=== PATIENT | male | born 1970 | race African-American/Black ===

== ENCOUNTER 2020-10-04 03:05 | Emergency (ER) | payer MEDICARE, OTHER ==
[~2020-10-04] VITALS: Ht 182.9 cm; Wt 145.4 kg
[~2020-10-04 03:05] MED LIST: ACET325T21 PO; AMLO-186 PO; AMLO-187 PO; AMLO2.5T5 PO; AMOX1TAB61 PO; ASPI-630 PO; ASPI-886 PO; ASPI325T8 PO; ATOR10TA60 PO; ATOR20TA58 PO; ATOR40TA59 PO; BUME1TAB3 PO; BUPR150T8 PO; CARV12.511 PO; CARV25TA2 PO; CARV3.1210 PO; CLON0.1T12 PO; CLON0.2T PO; CLON0.3T PO; CLON1PAT9 TD; CLOP75TA PO; COLLAGENASE TOP; DIVA500T2 PO; DOXA2TAB2 PO; FAMO20TA5 PO; FURO20TA3 PO; HYDR-2867 PO; HYDR-2868 PO; HYDR-2869 PO; HYDR12.575 PO; INSU100C SQ; INSU100C4 SQ; INSU100V13 SQ; INSU100V35 SQ; INSU100V6 SQ; ISOS30TA19 PO; ISOS30TA68 PO; LABE200T4 PO; LISI-130 PO; LISI-379 PO; LISI-517 PO; LISI20TA18 PO; METO5TAB4 PO; PANT40TA77 PO; POTA20TA4 PO; SENN8.6T11 PO; SULF15DR5 OU; TRAM50TA PO; ZINC113C8 TP; [UNRECOGNIZED DRUG - OTHER] TOP
--- NOTE | 2020-10-04 03:36 | ED.ADGEN ---
Past Medical History Past Medical History: CHF, CVA, Diabetes-Type II, High Cholesterol, Hypertension Additional Past Medical Histor: CVA X2 Past Surgical History: Other Additional Past Surgical Histo: Drain placed in groin, hernia surgery Smoking Status: Never Smoker Alcohol Use: None Drug Use: None General Adult EDM: Chief Complaint: ABDOMINAL PAIN HPI: HPI: Patient is a 50 year old male coming in from nursing facility for epigastric pain and one episode of emesis. Patient was not given any of his as needed Zofran medication at the time. No other complaints Review of Systems: Review of Systems: All other systems within normal limits except for as noted in the HPI Current Medications: Current Medications Medications (Trade) Dose Ordered Sig/Dequan Start Time Stop Time Status Last Admin Dose Admin Hydralazine HCl (Apresoline Inj) 10 mg 1X ONCE 10/04/20 03:45 10/04/20 03:46 DC 10/04/20 06:45 10 MG Ondansetron HCl (Zofran) 4 mg 1X ONCE 10/04/20 03:45 10/04/20 03:46 DC 10/04/20 06:45 4 MG Allergies: Allergies: Allergies Coded Allergies Type Severity Reaction Last Updated Verified shellfish derived Allergy Intermediate Rash 05/27/15 Yes Physical Exam: PE: Constitutional: Well developed, well nourished, no acute distress, non-toxic appearance. [] HENT: Normocephalic, atraumatic, bilateral external ears normal, nose normal. [] Eyes: PERRLA, conjunctiva normal, no discharge. [] Neck: No rigidity, supple, no stridor. [] Cardiovascular: Regular rate and rhythm, brisk cap refill [] Lungs & Thorax: Non labored symmetric respirations, no tachypnea or respiratory distress [] Abdomen: Soft, nondistended, epigastric tenderness without guarding or rebound. Skin: Warm, dry, no erythema, no rash. [] Back: Unremarkable Extremities: No deformities, range of motion grossly intact, no lower extremity edema [] Neurologic: Alert and oriented X 3, no focal deficits noted. [] Psychologic: Affect normal, judgement normal, mood normal. [] Current Patient Data: Labs: Laboratory Tests Test 10/04/20 05:50 10/04/20 08:05 White Blood Count 9.6 x10^3/uL (4.0-11.0) Red Blood Count 4.32 x10^6/uL (4.30-5.70) Hemoglobin 11.7 g/dL (13.0-17.5) L Hematocrit 35.5 % (39.0-53.0) L Mean Corpuscular Volume 82 fL (79-100) Mean Corpuscular Hemoglobin 27 pg (25-35) Mean Corpuscular Hemoglobin Concent 33 g/dL (31-37) Red Cell Distribution Width 16.7 % (11.5-14.5) H Platelet Count 258 x10^3/uL (140-400) Neutrophils (%) (Auto) 74 % (31-73) H Lymphocytes (%) (Auto) 14 % (24-48) L Monocytes (%) (Auto) 9 % (0-9) Eosinophils (%) (Auto) 3 % (0-3) Basophils (%) (Auto) 1 % (0-3) Neutrophils # (Auto) 7.0 x10^3/uL (1.8-7.7) Lymphocytes # (Auto) 1.3 x10^3/uL (1.0-4.8) Monocytes # (Auto) 0.9 x10^3/uL (0.0-1.1) Eosinophils # (Auto) 0.3 x10^3/uL (0.0-0.7) Basophils # (Auto) 0.0 x10^3/uL (0.0-0.2) Sodium Level 147 mmol/L (136-145) H Potassium Level 3.5 mmol/L (3.5-5.1) Chloride Level 108 mmol/L (98-107) H Carbon Dioxide Level 32 mmol/L (21-32) Anion Gap 7 (6-14) Blood Urea Nitrogen 27 mg/dL (8-26) H Creatinine 1.8 mg/dL (0.7-1.3) H Estimated GFR (Cockcroft-Gault) 48.2 BUN/Creatinine Ratio 15 (6-20) Glucose Level 135 mg/dL (70-99) H Calcium Level 8.6 mg/dL (8.5-10.1) Total Bilirubin 0.5 mg/dL (0.2-1.0) Aspartate Amino Transferase (AST) 9 U/L (15-37) L Alanine Aminotransferase (ALT) 16 U/L (16-63) Alkaline Phosphatase 81 U/L (46-116) Total Protein 6.6 g/dL (6.4-8.2) Albumin 3.0 g/dL (3.4-5.0) L Albumin/Globulin Ratio 0.8 (1.0-1.7) L Lipase 51 U/L (73-393) L Urine Collection Type Unknown Urine Color Yellow Urine Clarity Clear Urine pH 5.0 (<5.0-8.0) Urine Specific Al[place] 1.015 (1.000-1.030) Urine Protein Negative mg/dL (NEG-TRACE) Urine Glucose (UA) Negative mg/dL (NEG) Urine Ketones (Stick) Negative mg/dL (NEG) Urine Blood Negative (NEG) Urine Nitrite Negative (NEG) Urine Bilirubin Negative (NEG) Urine Urobilinogen Dipstick 0.2 mg/dL (0.2 mg/dL) Urine Leukocyte Esterase Negative (NEG) Urine RBC 0 /HPF (0-2) Urine WBC 0 /HPF (0-4) Urine Squamous Epithelial Cells Mod /LPF Urine Bacteria Few /HPF (0-FEW) Urine Mucus Mod /LPF Laboratory Tests 10/04/20 05:50 Laboratory Tests 10/04/20 05:50 Vital Signs: Vital Signs Date Time Temp Pulse Resp B/P (MAP) Pulse Ox O2 Delivery O2 Flow Rate FiO2 10/04/20 08:20 90 16 167/85 (112) 98 Room Air 10/04/20 03:12 98.0 98.0 EKG: EKG: [] Heart Score: C/O Chest Pain: No Risk Factors: Risk Factors: DM, Current or recent (<one month) smoker, HTN, HLP, family history of CAD, obesity. Risk Scores: Score 0 - 3: 2.5% MACE over next 6 weeks - Discharge Home Score 4 - 6: 20.3% MACE over next 6 weeks - Admit for Clinical Observation Score 7 - 10: 72.7% MACE over next 6 weeks - Early Invasive Strategies Radiology/Procedures: Radiology/Procedures: [] Course & Med Decision Making: Course & Med Decision Making Care transition at shift change pending labs and p.o. challenge. Patient is a 50-year-old male who presents to the emergency room with mild epigastric pain and a single episode of vomiting. Patient has not had any further vomiting here in the emergency room. Abdominal lab work was ordered by prior physician and are baseline for the patient. Patient does not appear to have an acute kidney injury. At this time patient is stable and will be discharged back to his facility. Patient's test results and vitals while in the ED were fully reviewed and discussed with the patient. Patient is stable and at this time does not need admission to the hospital. We have discussed strict return precautions and the importance of following up with their Primary Care Physician. Patient stated understanding and was given an opportunity to ask any questions. Patient is in agreement with plan. Dragon Disclaimer: Dragon Disclaimer: This electronic medical record was generated, in whole or in part, using a voice recognition dictation system. Departure Departure Impression: Primary Impression: Abdominal pain Additional Impression: Nausea and vomiting Disposition: 03 INTERMEDIATE FACILITY Condition: STABLE Referrals: ZARA ANTONIO MD (PCP) Patient Instructions: Nausea and Vomiting Problem Qualifiers NELLIE CAMPBELL MD Oct 04, 2020 03:36 PEARL SILVA MD Oct 04, 2020 07:07
[2020-10-04] MEDS ORDERED: ONDANSETRON PF 4 MG/2 ML VIAL. IVP ONE (03:45)
[2020-10-04] MEDS ORDERED: hydrALAZINE 20 MG/ML VIAL. IVP ONE (03:45)
[2020-10-04 06:10] LABS: BASO % 1 % (0-3); CALCIUM 8.6 mg/dL (8.5-10.1); CREATININE 1.8 mg/dL (0.7-1.3); EOS # 0.3 x10^3/uL (0.0-0.7); EOS % 3 % (0-3); GFR 48.2; HEMATOCRIT 35.5 % (39.0-53.0); HEMOGLOBIN 11.7 g/dL (13.0-17.5); LYMPH # 1.3 x10^3/uL (1.0-4.8); LYMPH % 14 % (24-48); MEAN CORPUSCULAR HEMOGLOBIN 27 pg (25-35); MEAN CORPUSCULAR HGB CONC 33 g/dL (31-37); MEAN CORPUSCULAR VOLUME 82 fL (79-100); MONO # 0.9 x10^3/uL (0.0-1.1); MONO % 9 % (0-9); NEUT % 74 % (31-73); PLATELET COUNT 258 x10^3/uL (140-400); POTASSIUM 3.5 mmol/L (3.5-5.1); RED BLOOD COUNT 4.32 x10^6/uL (4.30-5.70); RED CELL DISTRIBUTION WIDTH 16.7 % (11.5-14.5); WHITE BLOOD COUNT 9.6 x10^3/uL (4.0-11.0)
[2020-10-04 06:16] LABS: ALBUMIN/GLOBULIN RATIO 0.8 (1.0-1.7); TOTAL BILIRUBIN 0.5 mg/dL (0.2-1.0); TOTAL PROTEIN 6.6 g/dL (6.4-8.2)
[2020-10-04 08:20] VITALS: BP 167/85
[2020-10-04 08:24] LABS: BILIRUBIN,URINE NEGATIVE (NEG); CLARITY,URINE CLEAR; COLOR,URINE YELLOW; NITRITE,URINE NEGATIVE (NEG); PROTEIN,URINE NEGATIVE (NEG-TRACE); UROBILINOGEN,URINE 0.2 mg/dL (0.2 mg/dL)
[2020-10-04 08:37] LABS: BACTERIA,URINE FEW /HPF (0-FEW); RBC,URINE 0 /HPF (0-2); WBC,URINE 0 /HPF (0-4)
== END 2020-10-04 09:59 | disposition home or self-care (01) ==
LOC: ER 03:05
DX: R10.13 Epigastric pain (principal); R11.2 Nausea with vomiting, unspecified; I11.0 Hypertensive heart disease with heart failure; I50.9 Heart failure, unspecified; E11.9 Type 2 diabetes mellitus without complications; E78.00 Pure hypercholesterolemia, unspecified; Z86.73 Personal history of transient ischemic attack (TIA), and cerebral infarction without residual deficits; Z91.013 Allergy to seafood
CPT/HCPCS: 36415; 80053; 81001; 83690; 85025; 96374; 96375; 99285; J0360; J2405; P9612

== ENCOUNTER → 2020-10-27 | Outpatient (CLI) | payer MEDICARE, OTHER ==
[2020-10-04 08:20] VITALS: BP 167/85
--- NOTE | 2020-10-28 12:11 | SLEEP ---
DATE OF STUDY: 10/27/2020 ATTENDING PHYSICIAN: Dr. Foley REFERRING PHYSICIAN: Dr. Palacios. The patient is 50-year-old who weighs 360 pounds with a BMI of 45. The patient's Wob[place] score was 8. The patient underwent diagnostic sleep study performed at [facility]. During the night study, the patient spent 430 minutes in bed and slept for 358 minutes with a sleep efficiency of 83%. Sleep latency was 30 minutes with absent REM sleep. Overall, sleep architecture showed normal stage I sleep, increased stage II sleep, absent slow wave and absent REM sleep. During the night study, the patient had 4 obstructive apneas, 2 mixed apneas, 7 central apneas and 56 hypopneas. The patient's AHI was 12 per hour. Supine AHI 12 per hour. REM sleep was not observed. EKG monitoring revealed an average heart rate of 85 beats per minute. No sustained arrhythmias observed. Nocturnal oximetry study revealed an average oxygen saturation of 97% with a lowest of 79% and 16% of time oxygen saturation remained between 80 and 89%. No PLMs were observed. Due to low AHI, the patient did not meet the split night criteria for CPAP initiation. IMPRESSION: 1. Mild obstructive sleep apnea at an AHI of 12 per hour. Absence of REM sleep can underestimate the severity of sleep apnea. 2. Nocturnal hypoxia secondary to obstructive sleep apnea. RECOMMENDATION: 1. The patient will benefit from return to the sleep lab for CPAP titration study. 2. Once the patient is optimally treated with CPAP, then follow up in 4-6 weeks to assess compliance and to document clinical improvement. 3. Weight loss is advised. 4. Avoid STUDENT DEVELOPMENT COORDINATOR depressants. 5. Cautioned regarding driving until symptoms of sleep apnea resolve with the use of CPAP. MIRZA DR: Gissel TID: [id number] CC: ZARA FOLYE MD
== END ==
LOC: SLPLAB 19:11
PROVIDERS: ATTEND Internal Medicine
DX: G47.33 Obstructive sleep apnea (adult) (pediatric) (principal); R09.02 Hypoxemia
CPT/HCPCS: 95810

== ENCOUNTER 2021-02-21 09:58 | Inpatient (IN) | payer MEDICARE, OTHER ==
[~2021-02-21] VITALS: Ht 190.5 cm; Wt 165.0 kg
[~2021-02-21 09:58] MED LIST changes: -LISI-517 PO; +LISI5TAB15 PO; +POTA-121 PO
--- NOTE | 2021-02-21 10:11 | PHYS DOC ---
Past Medical History Past Medical History: CHF, CVA, Diabetes-Type II, High Cholesterol, Hyper tension Additional Past Medical Histor: CVA X2 Past Surgical History: Other Additional Past Surgical Histo: Drain placed in groin, hernia surgery Smoking Status: Never Smoker Alcohol Use: None Drug Use: None General Adult HPI: HPI: Patient is a 50-year-old male who presents to the emergency department for left- sided chest pain that started at 0900. The pain does not radiate. He rates it 9 out of 10. No treatment prior to arrival. Patient did have a history of chest pain. He reports mild lightheadedness with his chest pain. He has a history of diabetes type 2, 2 CVAs with right-sided numbness and weakness as a deficit and hypertension. He was given 324 mg of aspirin by the [facility] and got 0.4 sublingual nitroglycerin by EMS prior to arrival. He states that his pain did improve following the sublingual nitroglycerin. Patient denies shortness of breath, nausea, vomiting, cough, fevers. Patient has bilateral lower extremity edema but states that this is his baseline edema and it has not increased. Review of Systems: Review of Systems: Constitutional: See HPI Respiratory: See HPI Cardiovascular: See HPI GI: See HPI Neurologic: HPI Endocrine: See HPI Heart Score: C/O Chest Pain: Yes HEART Score for Chest Pain: HEART Score for Chest Pain Response (Comments) Value History Moderately Suspicious 1 ECG Normal 0 Age >45 - < 65 1 Risk Factors >3 Risk Factors or Hx CAD 2 Troponin < Normal Limit 0 Total 4 Risk Factors: Risk Factors: DM, Current or recent (<one month) smoker, HTN, HLP, family history of CAD, obesity. Risk Scores: Score 0 - 3: 2.5% MACE over next 6 weeks - Discharge Home Score 4 - 6: 20.3% MACE over next 6 weeks - Admit for Clinical Observation Score 7 - 10: 72.7% MACE over next 6 weeks - Early Invasive Strategies Current Medications: Current Medications Medications (Trade) Dose Ordered Sig/Dequan Start Time Stop Time Status Last Admin Dose Admin Fentanyl Citrate (Fentanyl 2ml Vial) 50 mcg 1X ONCE 02/21/21 10:15 02/21/21 10:16 Nitroglycerin (Nitrostat) 0.4 mg PRN Q5MIN PRN 02/21/21 10:15 02/22/21 10:14 Allergies: Allergies: Allergies Coded Allergies Type Severity Reaction Last Updated Verified shellfish derived Allergy Intermediate Rash 05/27/15 Yes Physical Exam: PE: Constitutional: Well developed, well nourished, no acute distress, non-toxic appearance. [] HENT: Normocephalic, atraumatic, bilateral external ears normal, oropharynx moist, no oral exudates, nose normal. [] Eyes: PERRL,EOMI, conjunctiva normal, no discharge. [] Neck: Normal range of motion, no tenderness, supple, no stridor. [] Cardiovascular:Heart rate regular rhythm, no murmur, chest pain reproducible with palpation [] Lungs & Thorax: Bilateral breath sounds clear to auscultation [] Abdomen: Bowel sounds normal, soft, no tenderness, obese, no masses, no pulsatil e masses. [] Skin: Warm, dry, no erythema, no rash. [] Back: Normal range of motion Extremities: No tenderness, no cyanosis, no clubbing, ROM intact, 3+ pitting edema with dry and scaly skin noted to bilateral lower extremities, due to edema, dorsalis pedis pulses are decreased Neurologic: Alert and oriented X 3, normal motor function, normal sensory function, no focal deficits noted. [] Psychologic: Affect normal, judgement normal, mood normal. [] Current Patient Data: Labs: Laboratory Tests Test 02/21/21 10:10 White Blood Count 6.5 x10^3/uL Red Blood Count 4.62 x10^6/uL Hemoglobin 11.9 g/dL Hematocrit 37.4 % Mean Corpuscular Volume 81 fL Mean Corpuscular Hemoglobin 26 pg Mean Corpuscular Hemoglobin Concent 32 g/dL Red Cell Distribution Width 16.5 % Platelet Count 244 x10^3/uL Neutrophils (%) (Auto) 64 % Lymphocytes (%) (Auto) 22 % Monocytes (%) (Auto) 9 % Eosinophils (%) (Auto) 5 % Basophils (%) (Auto) 1 % Neutrophils # (Auto) 4.2 x10^3/uL Lymphocytes # (Auto) 1.5 x10^3/uL Monocytes # (Auto) 0.6 x10^3/uL Eosinophils # (Auto) 0.3 x10^3/uL Basophils # (Auto) 0.0 x10^3/uL Sodium Level 137 mmol/L Potassium Level 3.0 mmol/L Chloride Level 96 mmol/L Carbon Dioxide Level 33 mmol/L Anion Gap 8 Blood Urea Nitrogen 29 mg/dL Creatinine 1.9 mg/dL Estimated GFR (Cockcroft-Gault) 45.3 BUN/Creatinine Ratio 15 Glucose Level 427 mg/dL Calcium Level 7.9 mg/dL Total Bilirubin 0.4 mg/dL Aspartate Amino Transf (AST/SGOT) 9 U/L Alanine Aminotransferase (ALT/SGPT) 16 U/L Alkaline Phosphatase 135 U/L Troponin I High Sensitivity 34 ng/L NP-Vyk-Q-Type Natriuretic Peptide 215 pg/mL Total Protein 6.6 g/dL Albumin 2.8 g/dL Albumin/Globulin Ratio 0.7 Current Medications Medications (Trade) Dose Ordered Sig/Dequan Route PRN Reason Start Time Stop Time Status Last Admin Dose Admin Nitroglycerin (Nitrostat) 0.4 mg PRN Q5MIN PRN SL CP RATING > /02/21/21 10:15 02/22/21 10:14 02/21/21 10:26 Fentanyl Citrate (Fentanyl 2ml Vial) 50 mcg 1X ONCE IVP 02/21/21 10:15 02/21/21 10:16 DC 02/21/21 10:32 EKG: EKG: EKG performed by ER staff at 1005 shows sinus rhythm with first-degree heart block, [place] interval is 280, QTc is 41, no STEMI read by Dr. Treviño at 1005 [] Radiology/Procedures: Radiology/Procedures: []PROCEDURE: PORTABLE CHEST 1V EXAM: Chest, single view. HISTORY: Chest pain. COMPARISON: 09/25/2020 FINDINGS: A frontal view of the chest is obtained. There is no infiltrate, pleural effusion or pneumothorax. There are chronic appearing interstitial changes. There is a stable prominent cardiac silhouette. IMPRESSION: Chronic appearing changes and stable prominent cardiac silhouette. Electronically signed by: Britt Hernandez MD (02/21/2021 10:58 AM) [id number] DICTATED and SIGNED BY: BRITT HERNANDEZ MD DATE: 02/21/21 [id number] 0 Course & Med Decision Making: Course & Med Decision Making Pertinent Labs and Imaging studies reviewed. (See chart for details) [] Patient presents to the emergency department for left-sided chest pain that started 1 hour prior to arrival. Patient has a history of diabetes type 2, hypertension and obesity. He reports that the 0.4 sublingual nitroglycerin that was administered by EMS did improve his chest pain. He received 324 of aspirin prior to ER arrival. Work-up in the ER consisted of blood work, EKG and chest x-ray. Chest x-ray unremarkable. CBC unremarkable. Potassium was 3.0 this was replaced in the ER. Patient was noted to have elevated BUN and creatinine but this is consistent with his previous lab findings. Troponin 34, blood glucose 427. Patient reports that his pain is improved following the nitroglycerin is now 2/10. I discussed patient's case with Dr. Brian who is his primary care provider and he agreed to admit the patient under his services for serial troponins and cardiac consultation. I discussed these findings with patient he is agreeable to the treatment plan. Will admit the patient, ER bridge orders placed. Yadira Disclaimer: Yadira Disclaimer: This electronic medical record was generated, in whole or in part, using a voice recognition dictation system. Departure Departure Impression: Primary Impression: Chest pain Qualified Codes: R07.9 - Chest pain, unspecified Disposition: ADMITTED INPATIENT Admitting Physician: Efrain Antonio Condition: STABLE Referrals: EFRAIN ANTONIO MD (PCP) ANGELIKA CROWDER HEARING AID SPECIALIST Feb 21, 2021 10:11
[2021-02-21] MEDS ORDERED: NITROGLYCERIN SUBLINGUAL 0.4 MG BOTTLE OF 25. SL PRN (10:15)
[2021-02-21] MEDS ORDERED: fentaNYL PF VIAL 100 MCG/2 ML VIAL IVP ONE (10:15)
[2021-02-21 10:42] LABS: BASO % 1 % (0-3); EOS # 0.3 x10^3/uL (0.0-0.7); EOS % 5 % (0-3); HEMATOCRIT 37.4 % (39.0-53.0); HEMOGLOBIN 11.9 g/dL (13.0-17.5); LYMPH # 1.5 x10^3/uL (1.0-4.8); LYMPH % 22 % (24-48); MEAN CORPUSCULAR HEMOGLOBIN 26 pg (25-35); MEAN CORPUSCULAR HGB CONC 32 g/dL (31-37); MEAN CORPUSCULAR VOLUME 81 fL (79-100); MONO # 0.6 x10^3/uL (0.0-1.1); MONO % 9 % (0-9); NEUT # 4.2 x10^3/uL (1.8-7.7); NEUT % 64 % (31-73); PLATELET COUNT 244 x10^3/uL (140-400); RED BLOOD COUNT 4.62 x10^6/uL (4.30-5.70); RED CELL DISTRIBUTION WIDTH 16.5 % (11.5-14.5); WHITE BLOOD COUNT 6.5 x10^3/uL (4.0-11.0)
[2021-02-21 10:48] LABS: ALBUMIN 2.8 g/dL (3.4-5.0); ALBUMIN/GLOBULIN RATIO 0.7 (1.0-1.7); CALCIUM 7.9 mg/dL (8.5-10.1); CREATININE 1.9 mg/dL (0.7-1.3); GFR 45.3; TOTAL BILIRUBIN 0.4 mg/dL (0.2-1.0); TOTAL PROTEIN 6.6 g/dL (6.4-8.2)
--- NOTE | 2021-02-21 10:56 | EKG ---
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
--- NOTE | 2021-02-21 11:01 | RAD ---
EXAM: Chest, single view. HISTORY: Chest pain. COMPARISON: 09/25/2020 FINDINGS: A frontal view of the chest is obtained. There is no infiltrate, pleural effusion or pneumo thorax. There are chronic appearing interstitial changes. There is a stable prominent cardiac silhoue tte. IMPRESSION: Chronic appearing changes and stable prominent cardiac silhouette. Electronically signed by: Britt Escobedo MD (02/21/2021 10:58 AM) [id number]
[2021-02-21] MEDS ORDERED: MORPHINE SULFATE 4 MG/ML INJ. IVP PRN (11:15)
[2021-02-21] MEDS ORDERED: POTASSIUM CHLORIDE 20 MEQ TABLET.ER. PO ONE (11:15)
--- NOTE | 2021-02-21 12:24 | PDOC2 ---
VIV DANIEL MARILOU 02/21/21 1224: CARDIAC CONSULT DATE OF CONSULT Date of Consult DATE: 02/21/21 TIME: 12:20 REASON FOR CONSULT Reason for Consult: Chest pain REFERRING PHYSICIAN Referring Physician: Milly Aragon APRN SOURCE Source: Chart review, Patient HISTORY OF PRESENT ILLNESS HISTORY OF PRESENT ILLNESS This is a 50 yo male who presented from nursing facility secondary to chest pain. Patient reports waking up with stabbing pain in his central chest. Did not radiate. Was worse with deep breathing and central chest was tender upon palpation. No associated dizziness, diaphoresis, palpitations, or SOA. Pain somewhat constant initially and then began to subsided around 10:30 this morning and has not returned. PAST MEDICAL HISTORY Past Medical History Cardiovascular: CHF, HTN, Hyperlipidemia Pulmonary: COPD CENTRAL NERVOUS SYSTEM: CVA GI: GERD, Other Renal/: Chronic renal insuff Endocrine: Diabetes PAST SURGICAL HISTORY Past Surgical History: Hernia Repair FAMILY HISTORY Family History: Hypertension SOCIAL HISTORY Social History ALCOHOL: none Drugs: None Lives: Medical [place] CURRENT MEDICATIONS CURRENT MEDICATIONS Current Medications Medications (Trade) Dose Ordered Sig/Dequan Route PRN Reason Start Time Stop Time Status Last Admin Dose Admin Nitroglycerin (Nitrostat) 0.4 mg PRN Q5MIN PRN SL CP RATING > /10 02/21/21 10:15 02/22/21 10:14 02/21/21 10:26 Fentanyl Citrate (Fentanyl 2ml Vial) 50 mcg 1X ONCE IVP 02/21/21 10:15 02/21/21 10:16 DC 02/21/21 10:32 ALLERGIES ALLERGIES: Coded Allergies: shellfish derived (Verified Allergy, Intermediate, Rash, 05/27/15) ROS Review of System 14 point ROS conducted with pertinent positives noted above in hPi PHYSICAL EXAM General: Alert, Oriented X3, Cooperative, No acute distress HEENT: Atraumatic, Mucous membr. moist/pink Lungs: Other (central chest tenderness upon palpation ) Heart: Regular rate Abdomen: Soft, Other (obese) Skin: Other (chronic venous stasis changes to bilateral LE ) Neuro: Normal speech, Sensation intact Psych/Mental Status: Mental status NL, Mood NL MUSCULOSKELETAL: Osteoarthritic changes both hands VITALS/I&O VITALS/I&O: Vital Signs Date Time Temp Pulse Resp B/P (MAP) Pulse Ox O2 Delivery O2 Flow Rate FiO2 02/21/21 10:32 20 93 Room Air 02/21/21 10:26 83 150/89 02/21/21 10:00 97.8 97.8 LABS Lab: Laboratory Tests Test 02/21/21 10:10 White Blood Count 6.5 x10^3/uL (4.0-11.0) Red Blood Count 4.62 x10^6/uL (4.30-5.70) Hemoglobin 11.9 g/dL (13.0-17.5) L Hematocrit 37.4 % (39.0-53.0) L Mean Corpuscular Volume 81 fL (79-100) Mean Corpuscular Hemoglobin 26 pg (25-35) Mean Corpuscular Hemoglobin Concent 32 g/dL (31-37) Red Cell Distribution Width 16.5 % (11.5-14.5) H Platelet Count 244 x10^3/uL (140-400) Neutrophils (%) (Auto) 64 % (31-73) Lymphocytes (%) (Auto) 22 % (24-48) L Monocytes (%) (Auto) 9 % (0-9) Eosinophils (%) (Auto) 5 % (0-3) H Basophils (%) (Auto) 1 % (0-3) Neutrophils # (Auto) 4.2 x10^3/uL (1.8-7.7) Lymphocytes # (Auto) 1.5 x10^3/uL (1.0-4.8) Monocytes # (Auto) 0.6 x10^3/uL (0.0-1.1) Eosinophils # (Auto) 0.3 x10^3/uL (0.0-0.7) Basophils # (Auto) 0.0 x10^3/uL (0.0-0.2) Sodium Level 137 mmol/L (136-145) Potassium Level 3.0 mmol/L (3.5-5.1) L Chloride Level 96 mmol/L (98-107) L Carbon Dioxide Level 33 mmol/L (21-32) H Anion Gap 8 (6-14) Blood Urea Nitrogen 29 mg/dL (8-26) H Creatinine 1.9 mg/dL (0.7-1.3) H Estimated GFR (Cockcroft-Gault) 45.3 BUN/Creatinine Ratio 15 (6-20) Glucose Level 427 mg/dL (70-99) H Calcium Level 7.9 mg/dL (8.5-10.1) L Magnesium Level 1.2 mg/dL (1.8-2.4) L Total Bilirubin 0.4 mg/dL (0.2-1.0) Aspartate Amino Transferase (AST) 9 U/L (15-37) L Alanine Aminotransferase (ALT) 16 U/L (16-63) Alkaline Phosphatase 135 U/L (46-116) H Troponin I High Sensitivity 34 ng/L (4-75) CB-Njo-Y-Type Natriuretic Peptide 215 pg/mL (0-124) H Total Protein 6.6 g/dL (6.4-8.2) Albumin 2.8 g/dL (3.4-5.0) L Albumin/Globulin Ratio 0.7 (1.0-1.7) L Laboratory Tests 02/21/21 10:10 Laboratory Tests 02/21/21 10:10 ECHOCARDIOGRAM ECHOCARDIOGRAM <Conclusion> The left ventricular systolic function is normal. The Ejection Fraction is 55%. There is normal LV segmental wall motion. Transmitral Doppler flow pattern is Grade I-abnormal relaxation pattern. Trace tricuspid regurgitation with an estimated 26 mmHg. There is no evidence of significant pericardial effusion. DATE: 01/15/20 1603 ASSESSMENT/PLAN ASSESSMENT/PLAN 1. Chest pain; initial trop negative. EKG without significant acute changes as compared to study 09/25/20 2. Accelerated hypertension; remains elevated 3. Chronic diastolic CHF; clinically compensated. Echo 01/26 with preserved LV systolic function. appears compensated 4. Hyperlipidemia; statin 5. Diabetes, II with hyperglycemia; as per IM 6. CKD 7. H/o CVA with right-sided weakness; on Plavix 8. Hypokalemia, hypomagnesemia Recommendations Trend troponin Resume secondary prevention Oral diuretic therapy BP control Echo to assess LV systolic function Probable outpatient ischemic evaluation Supportive care DAMON MACK MD 02/21/21 0346: CARDIAC CONSULT ASSESSMENT/PLAN ASSESSMENT/PLAN Patient seen and examined He denies chest pain at this time. Chest pain; initial 2 trop negative. EKG without significant acute changes as compared to study 09/25/20. Will rule out for WI. Echo pending. Accelerated hypertension; remains elevated. Adjusting medications. Chronic diastolic CHF; clinically compensated. Echo 01/26 with preserved LV systolic function. appears compensated Hyperlipidemia; statin. Monitoring lab. Diabetes, II with hyperglycemia; as per IM CKD H/o CVA with right-sided weakness; on Plavix Hypokalemia, hypomagnesemia. Replace and monitor. VIV DANIEL APRN Feb 21, 2021 12:24 DAMON MACK MD Feb 21, 2021 15:56
--- NOTE | 2021-02-21 14:15 | EKG ---
[facility] [address] [place] [address] Test Date: 2021-02-21 Test Time: 13:09:11 Pat Name: ALCIDES ANDREA Department: Room: ED HOLD 16 Gender: M Controller Mechanic: : 1970 Requested By: ANGELIKA CROWDER Order Number: [id number] Reading MD: Mark Bear Measurements Intervals [place] Rate: 80 P: 53 [place]: 260 QRS: -52 QRSD: 108 T: 62 QT: 414 QTc: 481 Interpretive Statements SINUS RHYTHM PROLONGED [place] INTERVAL ABNORMAL LEFT AXIS DEVIATION QRS(T) CONTOUR ABNORMALITY CONSISTENT WITH INFERIOR INFARCT PROBABLY OLD ABNORMAL ECG Electronically Signed On 02-22-2021 14:23:49 SUPERVISOR DRY CLEANING by Mark Bear
[2021-02-21] MEDS ORDERED: MAGNESIUM SULFATE 2GM 50 ML IV ONE (15:30)
[2021-02-21 16:19] LABS: CHOLESTEROL/HDL RATIO 3.4
[2021-02-21] MEDS ORDERED: DEXTROSE 50% 25 GM / 50ML DISP.SYRIN. IV PRN (17:30)
[2021-02-21] MEDS ORDERED: INSULIN LISPRO 300 UNITS/3 ML VIAL. SQ ONE (17:30)
[2021-02-21 17:34] VITALS: BP 178/104
[2021-02-21] MEDS ORDERED: INSULIN LISPRO 300 UNITS/3 ML VIAL. IV ONE (18:00)
[2021-02-21] MEDS: CARVEDILOL 12.5 MG TABLET. PO SCH (18:17)
[2021-02-21 19:59] VITALS: BP 158/103
[2021-02-21] MEDS ORDERED: ATORVASTATIN CALCIUM 40 MG TABLET. PO SCH (21:00)
[2021-02-21] MEDS: cloNIDine HCL 0.3 MG TABLET PO SCH (21:08)
[2021-02-21] MEDS: ISOSORBIDE DINITRATE 10 MG TABLET. PO SCH (21:09)
[2021-02-21 22:34] VITALS: BP 141/95
[2021-02-22 02:47] VITALS: BP 168/101
[2021-02-22 05:04] LABS: BASO # 0.1 x10^3/uL (0.0-0.2); BASO % 1 % (0-3); EOS # 0.4 x10^3/uL (0.0-0.7); EOS % 5 % (0-3); HEMATOCRIT 36.8 % (39.0-53.0); HEMOGLOBIN 12.4 g/dL (13.0-17.5); LYMPH # 1.8 x10^3/uL (1.0-4.8); LYMPH % 24 % (24-48); MEAN CORPUSCULAR HEMOGLOBIN 27 pg (25-35); MEAN CORPUSCULAR HGB CONC 34 g/dL (31-37); MEAN CORPUSCULAR VOLUME 81 fL (79-100); MONO # 0.7 x10^3/uL (0.0-1.1); MONO % 10 % (0-9); NEUT # 4.4 x10^3/uL (1.8-7.7); NEUT % 60 % (31-73); PLATELET COUNT 248 x10^3/uL (140-400); RED BLOOD COUNT 4.56 x10^6/uL (4.30-5.70); RED CELL DISTRIBUTION WIDTH 16.9 % (11.5-14.5); WHITE BLOOD COUNT 7.4 x10^3/uL (4.0-11.0)
[2021-02-22 05:24] LABS: ALBUMIN 2.7 g/dL (3.4-5.0); ALBUMIN/GLOBULIN RATIO 0.7 (1.0-1.7); CALCIUM 8.5 mg/dL (8.5-10.1); CREATININE 1.7 mg/dL (0.7-1.3); GFR 51.5; POTASSIUM 3.5 mmol/L (3.5-5.1); TOTAL BILIRUBIN 0.3 mg/dL (0.2-1.0); TOTAL PROTEIN 6.5 g/dL (6.4-8.2)
[2021-02-22 05:32] LABS: MAGNESIUM 1.7 mg/dL (1.8-2.4)
[2021-02-22 05:33] LABS: CHOLESTEROL/HDL RATIO 3.5
[2021-02-22 06:15] VITALS: BP 152/92
[2021-02-22] MEDS ORDERED: PANTOPRAZOLE 40 MG TABLET.DR. PO SCH (07:30)
[2021-02-22] MEDS ORDERED: CLOPIDOGREL BISULFATE 75 MG TABLET PO SCH (08:00)
--- NOTE | 2021-02-22 08:35 | PDOC ---
CARDIO Progress Notes Date and Time Date of Service 02/22/21 Time of Evaluation 0830 Subjective Subjective: No Chest Pain, No shortness of breath, No Palpitations Vitals Vitals Vital Signs Date Time Temp Pulse Resp B/P (MAP) Pulse Ox O2 Delivery O2 Flow Rate FiO2 02/22/21 06:15 97.4 84 18 152/92 (112) 97 Room Air 97.4 Weight Weight [ ] Input and Output Intake and Output Intake and Output 02/22/21 07:00 Intake Total 600 ml Output Total 1150 ml Balance -550 ml Intake Oral 600 ml Output Urine Total 1150 ml # Voids 2 # Bowel Movements 1 Laboratory Labs Laboratory Tests Test 02/21/21 10:10 02/21/21 12:51 02/21/21 15:25 02/21/21 16:45 White Blood Count 6.5 x10^3/uL (4.0-11.0) Red Blood Count 4.62 x10^6/uL (4.30-5.70) Hemoglobin 11.9 g/dL (13.0-17.5) Hematocrit 37.4 % (39.0-53.0) Mean Corpuscular Volume 81 fL (79-100) Mean Corpuscular Hemoglobin 26 pg (25-35) Mean Corpuscular Hemoglobin Concent 32 g/dL (31-37) Red Cell Distribution Width 16.5 % (11.5-14.5) Platelet Count 244 x10^3/uL (140-400) Neutrophils (%) (Auto) 64 % (31-73) Lymphocytes (%) (Auto) 22 % (24-48) Monocytes (%) (Auto) 9 % (0-9) Eosinophils (%) (Auto) 5 % (0-3) Basophils (%) (Auto) 1 % (0-3) Neutrophils # (Auto) 4.2 x10^3/uL (1.8-7.7) Lymphocytes # (Auto) 1.5 x10^3/uL (1.0-4.8) Monocytes # (Auto) 0.6 x10^3/uL (0.0-1.1) Eosinophils # (Auto) 0.3 x10^3/uL (0.0-0.7) Basophils # (Auto) 0.0 x10^3/uL (0.0-0.2) Sodium Level 137 mmol/L (136-145) Potassium Level 3.0 mmol/L (3.5-5.1) Chloride Level 96 mmol/L (98-107) Carbon Dioxide Level 33 mmol/L (21-32) Anion Gap 8 (6-14) Blood Urea Nitrogen 29 mg/dL (8-26) Creatinine 1.9 mg/dL (0.7-1.3) Estimated GFR (Cockcroft-Gault) 45.3 BUN/Creatinine Ratio 15 (6-20) Glucose Level 427 mg/dL (70-99) Calcium Level 7.9 mg/dL (8.5-10.1) Magnesium Level 1.2 mg/dL (1.8-2.4) Total Bilirubin 0.4 mg/dL (0.2-1.0) Aspartate Amino Transf (AST/SGOT) 9 U/L (15-37) Alanine Aminotransferase (ALT/SGPT) 16 U/L (16-63) Alkaline Phosphatase 135 U/L (46-116) Troponin I High Sensitivity 34 ng/L (4-75) 41 ng/L (4-75) 36 ng/L (4-75) TH-Wzi-Q-Type Natriuretic Peptide 215 pg/mL (0-124) Total Protein 6.6 g/dL (6.4-8.2) Albumin 2.8 g/dL (3.4-5.0) Albumin/Globulin Ratio 0.7 (1.0-1.7) Triglycerides Level 79 mg/dL (0-150) Cholesterol Level 126 mg/dL (0-200) LDL Cholesterol, Calculated 73 mg/dL (0-100) VLDL Cholesterol, Calculated 16 mg/dL (0-40) Non-HDL Cholesterol Calculated 89 mg/dL (0-129) HDL Cholesterol 37 mg/dL (40-60) Cholesterol/HDL Ratio 3.4 SARS-CoV-2 RNA (LAURA) Negative (Negative) SARS-CoV-2 Antigen (Rapid) Negative (NEGATIVE) Test 02/21/21 21:37 02/22/21 04:50 Glucose (Fingerstick) 315 mg/dL (70-99) White Blood Count 7.4 x10^3/uL (4.0-11.0) Red Blood Count 4.56 x10^6/uL (4.30-5.70) Hemoglobin 12.4 g/dL (13.0-17.5) Hematocrit 36.8 % (39.0-53.0) Mean Corpuscular Volume 81 fL (79-100) Mean Corpuscular Hemoglobin 27 pg (25-35) Mean Corpuscular Hemoglobin Concent 34 g/dL (31-37) Red Cell Distribution Width 16.9 % (11.5-14.5) Platelet Count 248 x10^3/uL (140-400) Neutrophils (%) (Auto) 60 % (31-73) Lymphocytes (%) (Auto) 24 % (24-48) Monocytes (%) (Auto) 10 % (0-9) Eosinophils (%) (Auto) 5 % (0-3) Basophils (%) (Auto) 1 % (0-3) Neutrophils # (Auto) 4.4 x10^3/uL (1.8-7.7) Lymphocytes # (Auto) 1.8 x10^3/uL (1.0-4.8) Monocytes # (Auto) 0.7 x10^3/uL (0.0-1.1) Eosinophils # (Auto) 0.4 x10^3/uL (0.0-0.7) Basophils # (Auto) 0.1 x10^3/uL (0.0-0.2) Sodium Level 139 mmol/L (136-145) Potassium Level 3.5 mmol/L (3.5-5.1) Chloride Level 99 mmol/L (98-107) Carbon Dioxide Level 35 mmol/L (21-32) Anion Gap 5 (6-14) Blood Urea Nitrogen 27 mg/dL (8-26) Creatinine 1.7 mg/dL (0.7-1.3) Estimated GFR (Cockcroft-Gault) 51.5 BUN/Creatinine Ratio 16 (6-20) Glucose Level 284 mg/dL (70-99) Calcium Level 8.5 mg/dL (8.5-10.1) Magnesium Level 1.7 mg/dL (1.8-2.4) Total Bilirubin 0.3 mg/dL (0.2-1.0) Aspartate Amino Transf (AST/SGOT) 7 U/L (15-37) Alanine Aminotransferase (ALT/SGPT) 15 U/L (16-63) Alkaline Phosphatase 112 U/L (46-116) Total Protein 6.5 g/dL (6.4-8.2) Albumin 2.7 g/dL (3.4-5.0) Albumin/Globulin Ratio 0.7 (1.0-1.7) Triglycerides Level 90 mg/dL (0-150) Cholesterol Level 138 mg/dL (0-200) LDL Cholesterol, Calculated 81 mg/dL (0-100) VLDL Cholesterol, Calculated 18 mg/dL (0-40) Non-HDL Cholesterol Calculated 99 mg/dL (0-129) HDL Cholesterol 39 mg/dL (40-60) Cholesterol/HDL Ratio 3.5 Thyroid Stimulating Hormone (TSH) 1.177 uIU/mL (0.358-3.74) Physical Exam HEENT: Neck Supple W Full Motion Chest: Symmetric LUNGS: Clear to Auscultation Heart: RRR Abdomen: Soft N/T, Other (obese) Extremities: Other (chronic venous stasis changes to bilateral LE ) Neurology: alert, oriented, follow commands Assessment Assessment 1. Chest pain, atypical; trop series negative, AMI ruled out. EKG without significant acute changes as compared to study 09/25/20 2. Accelerated hypertension; better controlled, but remains elevated. Renal duplex 01/26 without evidence of KALEB 3. Chronic diastolic CHF; clinically compensated. Echo 01/26 with preserved LV systolic function. appears compensated 4. Hyperlipidemia; statin 5. Diabetes, II with hyperglycemia; as per IM 6. CKD 7. H/o CVA with right-sided weakness; on Plavix 8. Hypokalemia, hypomagnesemia Recommendations Replace K, Mg Increase amlodipine for better BP control Echo Secondary prevention Probable outpatient ischemic evaluation Supportive care Justicifation of Admission Dx: Justifications for Admission: Justification of Admission Dx: Yes Sepsis: End-Organ Dysfunction VIV DANIEL APRN Feb 22, 2021 08:35
[2021-02-22] MEDS ORDERED: POTASSIUM CHLORIDE 20 MEQ TABLET.ER. PO ONE (08:45)
[2021-02-22] MEDS ORDERED: BUMETANIDE 1 MG TABLET. PO SCH (09:00)
[2021-02-22] MEDS ORDERED: metOLazone 2.5 MG TABLET PO SCH (09:00)
[2021-02-22] MEDS ORDERED: LISINOPRIL 20 MG TABLET PO SCH (09:00)
[2021-02-22] MEDS ORDERED: ASPIRIN CHEWABLE 81 MG TABLET. PO SCH (09:00)
[2021-02-22] MEDS ORDERED: MAGNESIUM SULFATE 2GM 50 ML IV ONE (09:00)
[2021-02-22] MEDS ORDERED: POTASSIUM CHLORIDE 20 MEQ TABLET.ER. PO SCH (09:00)
[2021-02-22] MEDS ORDERED: DOXAZOSIN MESYLATE 1 MG TABLET. PO SCH (09:00)
[2021-02-22] MEDS: ISOSORBIDE DINITRATE 10 MG TABLET. PO SCH (09:11)
[2021-02-22] MEDS: cloNIDine HCL 0.3 MG TABLET PO SCH (09:11)
[2021-02-22] MEDS: CARVEDILOL 12.5 MG TABLET. PO SCH (09:12)
--- NOTE | 2021-02-22 09:26 | PDOC ---
Provider Note Date of Service: DATE: 02/22/21 TIME: 09:25 Provider Note Pt seen.H&P dictated.#[id number] Justifications for Admission Other Justification HYPERGLYCEMIA AND AMS ZARA ANTONIO MD Feb 22, 2021 09:26
--- NOTE | 2021-02-22 09:30 | SNU/HH DC ---
DISCHARGE ORDERS DISCHARGE INFORMATION: DISCHARGE DATE: Feb 22, 2021 FINAL DIAGNOSIS Problems Medical Problems: (1) Chest pain Status: Acute CONDITION ON DISCHARGE: Stable CODE STATUS: Code Status: Full ASSISTED: SNF STAY <30 DAYS: Yes POST DISCHARGE ORDERS: ACTIVITY ORDERS: Activity as tolerated WEIGHT BEARING STATUS: As tolerated DIET AFTER DISCHARGE: ADA WOUND/INCISION CARE: Keep wound/cast CDI CHECKS AFTER DISCHARGE: CHECKS AFTER DISCHARGE: Check blood press - daily, Check blood sugar, ac/hs, Check your Temp as needed, Weigh Yourself Daily FOLLOW-UP: LAB ORDERS FOR FOLLOW-UP: cbc,bmp in 1 week TREATMENT/EQUIPMENT ORDERS: ADAPTIVE EQUIPMENT NEEDED: None Physical Therapy For: Evalulation/Treatment Occupational Therapy For: Evaluation/Treatment DISCHARGE MEDICATIONS: Home Meds Active Scripts Potassium Chloride (POTASSIUM CHLORIDE ) 20 Meq Tablet.er, 20 MEQ PO DAILY for SUPPLEMENT for 7 Days, #7 TAB.SR Prov:ZARA ANTONIO MD 09/30/20 Amlodipine Besylate (AMLODIPINE BESYLATE) 5 Mg Tablet, 5 MG PO DAILY for htn for 30 Days, #30 TAB Prov:ZARA ANTONIO MD 09/30/20 Sulfacetamide Sodium (SULFACETAMIDE SODIUM) 15 Ml Drops, 1 DROP OU QID for blepharitis for 7 Days, DROP Prov:ZARA ANTONIO MD 09/30/20 Pantoprazole Sodium (PANTOPRAZOLE SODIUM ) 40 Mg Tablet.dr, 40 MG PO DAILYAC for gerd for 30 Days, #30 TAB.SR Prov:ZARA ANTONIO MD 09/30/20 Clopidogrel Bisulfate (CLOPIDOGREL) 75 Mg Tablet, 75 MG PO DAILYWBKFT for blood pressure for 30 Days, #30 TAB 2 Refills Prov:VIV DANIEL APRN 01/20/20 Reported Medications Zinc Oxide (Diaper Rash) 113 Gm Cream..g., 1 PARRISH TP BID for 30 Days, #113 GM 0 Refills 09/26/20 Bupropion Hcl (WELLBUTRIN SR) 150 Mg Tablet.er, 150 MG PO DAILY, TAB.SR 09/26/20 Tramadol Hcl (TRAMADOL HCL) 50 Mg Tablet, 50 MG PO Q6HRS PRN for PAIN, TAB 09/26/20 Sennosides (SENNA LAXATIVE) 8.6 Mg Tablet, 1 TAB PO BID for constipation for 30 Days, #60 TAB 0 Refills 09/26/20 Metolazone (METOLAZONE) 5 Mg Tablet, 5 MG PO DAILY, #30 TAB 0 Refills 09/26/20 Lisinopril (LISINOPRIL) 40 Mg Tablet, 1 TAB PO DAILY, #30 TAB 5 Refills 09/26/20 Carvedilol (CARVEDILOL) 25 Mg Tablet, 25 MG PO BIDWMEALS for CARDIAC, TAB 09/26/20 Bumetanide (BUMETANIDE) 1 Mg Tablet, 1 TAB PO DAILY, #90 TAB 1 Refill 09/26/20 [collgenase powder ] No Conflict Check, TOP DAILY 09/26/20 Insulin Detemir (LEVEMIR) 100 Unit/1 Ml Vial, 40 UNIT SQ HS, EACH 09/26/20 Insulin Detemir (LEVEMIR) 100 Unit/1 Ml Vial, 21 UNIT SQ DAILY, EACH 09/26/20 Insulin Lispro (HUMALOG) 100 Unit/1 Ml Vial, 20 UNIT SQ TID, EACH 09/26/20 Isosorbide Dinitrate (ISOSORBIDE DINITRATE) 30 Mg Tablet, 1 TAB PO TID for chest pain for 30 Days, #90 TAB 0 Refills 09/26/20 Hydralazine Hcl (HYDRALAZINE HCL) 50 Mg Tablet, 3 TAB PO TID, #90 TAB 5 Refills 09/26/20 Doxazosin Mesylate (DOXAZOSIN MESYLATE) 2 Mg Tablet, 1 TAB PO DAILY, #30 TAB 5 Refills 09/26/20 Divalproex Sodium (DEPAKOTE) 500 Mg Tablet.dr, 250 MG PO HS, TAB 09/26/20 [collagenase powder] No Conflict Check, TOP DAILY 09/26/20 Clonidine Hcl (CLONIDINE HCL) 0.3 Mg Tablet, 0.3 MG PO BID, TAB 09/26/20 Atorvastatin Calcium (ATORVASTATIN CALCIUM) 40 Mg Tablet, 1 TAB PO QHS, #90 TAB 3 Refills 09/26/20 Aspirin (ASPIRIN) 81 Mg Tab.chew, 1 TAB PO DAILY, #30 TAB 3 Refills 09/26/20 Acetaminophen (ACETAMINOPHEN) 325 Mg Tablet, 1 TAB PO Q6HRS PRN for pain or fever for 30 Days, #30 TAB 0 Refills 09/26/20 ZARA ANTONIO MD Feb 22, 2021 09:30
[2021-02-22] MEDS: INSULIN LISPRO 300 UNITS/3 ML VIAL. SQ SCH ×2 (09:31→12:26)
--- NOTE | 2021-02-22 09:53 | CARD ---
MR#: [id number] Date of Study: 02/22/2021 Ordering Physician: VIV DANIEL, Referring Physician: VIV DANIEL, Tech: Lupe Rudd [facility] APPROVED REPORT EXAM: Two-dimensional and M-mode echocardiogram with Doppler and color Doppler. Other Information Quality : Technically LimitedHR: 80bpm Rhythm : NSRTechnically limited study due to body habitus, patient refusing imaging INDICATION Dyspnea Chest Pain RISK FACTORS Hypertension Obesity Hyperlipidemia Diabetes 2D DIMENSIONS Left Atrium(2D)3.4 (1.6-4.0cm)IVSd2.3 (0.7-1.1cm) Aortic Root(2D)3.9 (2.0-3.7cm)LVDd3.7 (3.9-5.9cm) LVOT Diameter2.3 (1.8-2.4cm)PWd2.1 (0.7-1.1cm) LVDs3.0 (2.5-4.0cm)FS (%) 19.8 % SV24.7 mlLVEF(%)41.4 (>50%) LEFT VENTRICLE The left ventricle is normal size. There is mild to moderate concentric left ventricular hypertrophy. The left ventricular systolic function is normal and the ejection fraction is within normal range. E stimated ejection fraction 60-65%. There is grossly normal LV segmental wall motion. RIGHT VENTRICLE The right ventricle is normal size. The right ventricle is borderline hypertrophied. The right ventri cular systolic function is normal. ATRIA The left atrium size is normal. PERICARDIAL EFFUSION There is no evidence of significant pericardial effusion. Critical Notification Critical Value: No <Conclusion> There is mild to moderate concentric left ventricular hypertrophy. The left ventricular systolic function is normal and the ejection fraction is within normal range. E stimated ejection fraction 60-65%. There is grossly normal LV segmental wall motion. Limited study only as patient refused full imaging. Technically difficult study. Signed by : Michael Donald, Electronically Approved : 02/22/2021 09:52:53
--- NOTE | 2021-02-22 09:55 | HP ---
DATE OF SERVICE: 02/22/2021 ADMIT DATE: 02/21/2021 REASON FOR ADMISSION TO THE HOSPITAL: Chest pain. The patient has risk factors including diabetes, hypertension, previous strokes. HISTORY OF PRESENTING ILLNESS: The patient is a 50-year-old male patient, looks older than his age. He has been from a fdc, [facility]. The patient is in a wheelchair level activity from the stroke and has noticed some stabbing kind of chest pain in the center of chest and worse with deep breathing and the patient did not have any radiation, no diaphoresis. The patient was sent to the Emergency Room. The patient had cardiac enzymes, troponin was negative. Admitted for Cardiology evaluation. Seen by Cardiology. The patient had cardiac rehab nurse, he is chest pain free. PAST MEDICAL HISTORY: Has a history of previous stroke, COPD, CHF, hypertension, diabetes, chronic kidney disease, GERD and a stroke. PAST SURGICAL HISTORY: Hernia repair. ALLERGIES: SHELLFISH DERIVATIVES. FAMILY HISTORY: Diabetes, hypertension and strokes. SOCIAL HISTORY: Ex-smoker. The patient has been in fdc for almost a year now, [facility]. MEDICATIONS: At the fdc, the patient is on Tylenol, Wellbutrin SR 150 mg daily, Depakote 250 mg at bedtime, insulin 20 units 3 times daily, Humalog, senna daily, laxative daily, sulfa eyedrops, tramadol for pain 50 mg q.6 hours, Levemir 21 units daily in the morning and 40 units at bedtime, zinc to the skin, amlodipine 5 mg daily, aspirin 81 mg daily, atorvastatin 40 mg daily, Bumex 1 mg daily, Coreg 25 mg twice a day, clonidine 0.3 twice a day, Plavix 75 mg daily, Cardura 2 mg daily, hydralazine 50 mg 3 times daily, isosorbide 30 mg 3 times daily, lisinopril 40 mg daily, metolazone 5 mg daily, pantoprazole 40 mg daily, potassium 20 mEq daily. PHYSICAL EXAMINATION: GENERAL: The patient is not in any distress, chest pain free and is making a good conversation. VITAL SIGNS: At the time of admission show temperature 98, pulse 82, respirations 20, blood pressure 150/89, 93 on room air. HEENT: Head is atraumatic. Pupils are equal. Oral cavity, few teeth present. Most of the teeth are broken. Oral cavity, no congestion. NECK: Supple. Thyroid normal. JVD not elevated. CHEST: Symmetrical. CARDIOVASCULAR: S1, S2. LUNGS: Clear to auscultation. ABDOMEN: Soft, bowel sounds are present. EXTERNAL GENITALIA: No Santana. RECTUM: Deferred. EXTREMITIES: The patient has chronic lymphedema of lower extremities, very dry skin. No skin breakdown. NEUROLOGIC: The patient is weak on the right side from previous stroke, able to use the left upper extremity. LABORATORY DATA: Shows a white count of 5, hemoglobin 12, platelets 244. Electrolytes show sodium 137, potassium 3.0, chloride 96, bicarbonate 33, BUN 29, creatinine 1.9, glucose 427 and COVID test negative. FINAL IMPRESSION: 1. Chest pain for cardiac evaluation. 2. Risk factors including diabetes, hypertension, stroke. 3. Hypokalemia. 4. Acute on chronic kidney failure. 5. Hypertension. 6. Hyperlipidemia. 7. Previous stroke. 8. Chronic lymphedema. PLAN: At this time, the patient was admitted to the hospital. Cardiology is consulted. Serial enzymes, cardiac rehab nurse and chest x-ray, no acute abnormalities, chronic changes. EKG, no acute ischemic changes and echocardiogram was done, report is pending. Once Cardiology clears, probably he can go back to a fdc, needs to have dentist look at the facility who can remove the bad teeth there. RICH/JAYCOB DR: RICH/marjorie TID: [id number]
[2021-02-22 10:25] VITALS: BP 153/93
--- NOTE | 2021-02-22 12:18 | NUR ---
SS following up with discharge planning. SS reviewed pt chart and discussed with pt RN. Pt is currently on room air. COVID19 negative. Pt is LTC resident from [facility] in [place], ; fax [phone]. Cardiology following. Discharge orders received for return to [facility] pending approval from Cardiology. Clinical and discharge orders phoned and faxed to [facility] [place]. Per RN, pt needs stretcher transport. SS currently awaiting transportation time from facility. Packet placed on chart. SS will continue to follow for discharge planning. Addendum: 02/22/21 at 1253 by JAYLEEN CNA SS [facility] in [place] contacted floor and spoke with pt's RN. [facility] declining to send stretcher and notified RN that they are sending W/C transport at 1515 for discharge.
[2021-02-22] MEDS ORDERED: AMLO-187 PO (13:00)
--- NOTE | 2021-02-22 13:39 | NUR ---
Discharge Note: ALCIDES ANDREA Discharge instructions and discharge home medications reviewed with Other facility and a copy given. All questions have been answered and understanding verbalized. Patient discharged to [facility] with transport via wheelchair.
[2021-02-23 01:16] LABS: HEMOGLOBIN A1C 11.9 % (4.8-5.6)
--- NOTE | 2021-02-24 21:54 | PDOC ---
Provider Note Date of Service: DATE: 02/24/21 TIME: 21:54 Provider Note Discharge summary dictated.#[id number]. Justifications for Admission Other Justification HYPERGLYCEMIA AND AMS ZARA ANTONIO MD Feb 24, 2021 21:54
--- NOTE | 2021-02-24 22:12 | DS ---
DATE OF DISCHARGE: 02/22/2021 REASON FOR ADMISSION TO THE HOSPITAL: Chest pain. The patient has risk factors including diabetes, hypertension, previous stroke. CONSULTATIONS: Dr. Donald. PROCEDURES DONE: Echocardiogram. HOSPITAL COURSE: The patient is a 50-year-old male. The patient lives in a fdc, had a history of previous stroke, wheelchair level, history of diabetes, hypertension and chronic kidney disease stage 3. He is having chest pain, mostly in the right side, came to the Emergency Room, EKG negative, cardiac enzymes, was admitted to the hospital because of risk factors. The patient was admitted to a cardiac care nurse. EKG did not show any ischemic changes. threat monitoring analyst, no arrhythmias. Troponin was negative for acute MN. The patient had echocardiogram, which shows a good left ventricular function, 60%. His potassium was low at 3, was replaced. Creatinine 1.9. Blood sugar 427. Magnesium was low at 1.2. A1c was 12. Thyroid and cholesterol were within the normal range. The patient had a COVID screen was negative. Chest x-ray, scarring. FINAL IMPRESSION: 1. Chest pain, noncardiac at this point more like a skeletomuscular. 2. Echocardiogram showed a good left ventricular function. 3. Electrolyte imbalance including hypokalemia, hypomagnesemia. Magnesium was low and replaced. 4. Chronic kidney disease stage 3. 5. History of previous stroke and right hemiparesis. 6. History of diabetes, hypertension, hyperlipidemia, insulin-dependent. 7. Uncontrolled diabetes, A1c 12. DISPOSITION: The patient is discharged back to the fdc. The patient has bad dentition, needs a dental evaluation and fdc physician to adjust the insulin dose. The patient will be evaluated by Cardiology for outpatient stress test. MALA DR: Azra TID: [id number]
== END 2021-02-22 13:41 | DRG 313 ==
LOC: ER 09:58 → ED HOLD 11:21 → 6 SOUTH 16:28
PROVIDERS: ADMIT Internal Medicine; ATTEND Internal Medicine
DX: R07.89 Other chest pain (principal); I13.0 Hypertensive heart and chronic kidney disease with heart failure and stage 1 through stage 4 chronic kidney disease, or unspecified chronic kidney disease; I50.32 Chronic diastolic (congestive) heart failure; I69.351 Hemiplegia and hemiparesis following cerebral infarction affecting right dominant side; E11.22 Type 2 diabetes mellitus with diabetic chronic kidney disease; E11.65 Type 2 diabetes mellitus with hyperglycemia; E78.00 Pure hypercholesterolemia, unspecified; E78.5 Hyperlipidemia, unspecified; E83.42 Hypomagnesemia; K21.9 Gastro-esophageal reflux disease without esophagitis; E87.8 Other disorders of electrolyte and fluid balance, not elsewhere classified; E87.6 Hypokalemia; J44.9 Chronic obstructive pulmonary disease, unspecified; N18.30 Chronic kidney disease, stage 3 unspecified; Z20.822 Contact with and (suspected) exposure to COVID-19; Z79.4 Long term (current) use of insulin; Z82.49 Family history of ischemic heart disease and other diseases of the circulatory system; Z83.3 Family history of diabetes mellitus; Z87.891 Personal history of nicotine dependence; Z91.013 Allergy to seafood
CPT/HCPCS: 36415; 71045; 80053; 80061; 82962; 83036; 83735; 83880; 84443; 84484; 85025; 87426; 93005; 93306; 96365; 96375; J1815; J3010; J3475; U0003; U0005; 99285-25; G0378